=== PATIENT | male | born 1960 | race Caucasian/White ===

== ENCOUNTER 2019-07-17 08:09 | Emergency (ER) | payer BC ==
--- OUTSIDE RECORDS SUMMARY | 2019-07-17 08:20 | XMS REPORT | Continuity of Care Document ---
:1960 External Reference #:[id number] Author Name Loren BUDDY Pina Address [address] [place] [address] Care Team Providers Name Role Phone [facility] - Care Team Information Lead Project Engineer [phone] Gastroenterology Vickey Allen MD - Family Care Team Information Lead Project Engineer [phone] Medicine Problems Active Problems Provider Date Gastroesophageal reflux disease Jf Fam M.D. Onset: 05/10/2013 Allergic condition Vickey Allen M.D. Onset: 05/10/2013 Social History Type Date Description Comments Sex Unknown Tobacco Use Start: Unknown Never Smoked Cigarettes ETOH Use Occasional Allergies, Adverse Reactions, Alerts Active Allergies Reaction Severity Comments Date Doxycycline HTN, Head pressure 07/05/2015 Medications Active Medications SIG Qnty Indications Ordering Provider Date Loratadine 1 PO qd prn 30tabs Family Medicine 04/23/2007 10mg Tablets Allergies [facility] Vitamin B-Complex Unknown Tablets Multivitamins 1 po qd Unknown Capsules Calcium + D3 Unknown [id number] Tablets Probiotic 1 by mouth 2-3x a Unknown Capsules week Immunizations CPT Code Status Date Vaccine Lot # [id number] Given 02/18/2018 Influenza Vac, Quad[place] [id number] Given 01/23/2017 Influenza Vac, Quadrivalent, Slit Virus, Im [id number] Given 02/16/2016 Influenza Vac, [place]riv[place] [id number] Given 03/10/2014 DO Not Use Split Influenza Virus Vaccine Vital Signs Date Vital Result Comment 06/30/2019 1:35pm BP Systolic 142 mmHg BP Diastolic 92 mmHg Heart Rate 100 /min Body Temperature 97.5 F Respiratory Rate 16 /min Height 69.25 inches 5'9.25" Weight 145.00 lb BMI (Body Mass Index) 21.3 kg/m2 01/15/2019 8:41am BP Systolic 150 mmHg BP Diastolic 78 mmHg Heart Rate 90 /min Body Temperature 97.9 F Height 69.25 inches 5'9.25" Weight 141.00 lb BMI (Body Mass Index) 20.7 kg/m2 Results Test Acquired Date Facility Test Result H/L Range Note Laboratory test 06/30/2019 Remberto Danuta([facility]) TSH <pending> 0.5-5.0 finding Uric Acid <pending> 2.5-9.2 Comprehensive Metabolic 01/15/2019 Remberto Danuta([facility]) Sodium 139 mEq/L 134-149 Prof Potassium 4.2 mEq/L 3.6-5.5 Chloride 100 mEq/L 94-112 Carbon Dioxide 29 mEq/L 21-32 Glucose 111 mg/dL High 70-105 1 BUN 10 mg/dL 6-26 Creatinine 0.6 mg/dL 0.6-1.4 BUN/Creat Ratio 16.7 CALC 8.0-36.0 Calcium 9.5 mg/dL 8.6-10.2 Total Protein 7.4 g/dL 6.4-8.3 Albumin 4.9 g/dL 3.8-5.5 Globulin 2.5 g/dL 2.0-4.8 A/G Ratio 2.0 CALC 0.6-2.3 Alk. Phosphatase 83 U/L 22-95 Alt (SGPT) 38 U/L High 7-35 2 Ast (Sgot) 34 U/L 5-34 Total Bilirubin 0.5 mg/dL 0.2-1.3 GFR Non- >60 ml/min/1.73m^ >=60 GFR >60 ml/min/1.73m^ >=60 CBC Electronic Fma 01/15/2019 Sr Flora([facility]) WBC 5.1 x10^3/UL 4.0- 10.0 RBC 4.74 x10^6/UL 3.93-6.00 HGB 15.4 g/dL 12.0-17.0 HCT 46 % 35-50 MCV 97.9 fL High 80.0-95.0 MCH 32.5 pg High 25.6-32.2 MCHC 33.2 g/dL 32.2-36.0 RDW-CV 11.9 % 11.6-14.4 PLT 265 x10^3/UL 163-400 MPV 8.7 fL Low 9.4-12.4 Bety# 3.01 x10^3/UL 1.56-6.13 Lymph# 1.31 x10^3/UL 1.18-3.74 Brown# 0.63 x10^3/UL 0.24-0.82 Eos # 0.1 x10^3/UL 0.0-0.5 Baso # 0.04 x10^3/UL 0.01-0.08 Bety% 58.9 % 34.0-70.0 Lymph % 25.6 % 20.0-52.0 Brown% 12.3 % High 5.0-12.0 Eos% 2.2 % 0.7-7.0 Baso% 0.8 % 0.1-1.2 Ua - Micro (Fma) 01/15/2019 family medicine Appearance clear (607)- - Color yellow Glucose, Urine (Fma/CMC/CTX) neg Bilirubin neg Ketones neg SP Grav 1.010 Blood trace PH 5.5 Protein neg Urobil 0.2 Nitrite neg Leukocytes (Fma/CMC/Centrex) neg Hyaline - /Lpf Granular - /Lpf WBC (Fma,Centrex) 0-1 RBC 0-1 Mucus (Fma/CBC/Centrex) - /Lpf Epith - /Lpf Bacteria - /Hpf Amorphous (Fma/CMC/Centrex) - /Lpf Crystals, Fluid (Fma/CMC/CTX) - 1 NON-FASTING 2 consistent w/ previous results Procedures Date Code Description Status 05/13/2016 [id number] Colonoscopy Completed Medical Devices Description No Information Available Encounters Type Date Location Provider Dx Diagnosis Office Visit 01/15/2019 [facility] Office Loren Pina, R10.32 Left lower 9:00a MANAGER quadrant pain M54.5 Low back pain Assessments Date Code Description Provider 06/30/2019 L29.8 Other pruritus BUDDY Mohan 06/30/2019 R21 Rash and other nonspecific skin eruption BUDDY Mohan 01/15/2019 R10.32 Left lower quadrant pain Loren Yovani, [facility] 01/15/2019 M54.5 Low back pain Loren Pina, [facility] Plan of Treatment 06/30/2019 - Loren Yovani, FNPL29.8 Other [id number] Rash and other nonspecific skin eruptionComments:No scrubbing, gentle soap only, and just to rinse over affected areas-- try to avoid all other topicals to reduce irritation to skin First exederm, then aquaphor to coverCool compresses/ice is the right choiceDERMATOLOGY referral is fine anytime- I do think they would ask you to do what I am asking you to do first-- we can also increase the potency of the steroid as needed if you're not seeing significant improvement in the next 2 weeks Functional Status Description No Information Available Mental Status Description No Information Available Referrals Description No Information Available
[2019-07-17 10:03] VITALS: BP 142/101
--- NOTE | 2019-07-17 11:51 | ED ---
Skin Complaint - HPI Summary HPI Summary: Patient is an otherwise healthy 58yo M presenting to the ED with a 1 week hx of worsening rash. Pt endorses rash starting out to the L lower leg and has now progressed to a diffuse rash. Endorses rash to the upper back, sides of the face, bilateral arms and legs with some resembling linear patches and some confluent patches. Denies fevers, sweats or chills. Denies new fragrances, soaps or environmental contacts. - History of Current Complaint Chief Complaint: EDRashSkinAbscess Time Seen by Provider: 07/17/19 08:51 Stated Complaint: ALLERGIC REACTION PER PT Hx Obtained From: Patient, Family/De Icer Installer Onset/Duration: Started Days Ago Skin Exposure Onset/Duration: Days Ago Timing: Constant Onset Severity: Moderate Current Severity: Moderate Pain Intensity: 0 Pain Scale Used: 0-10 Numeric Skin Location: Diffuse Character: Swelling, Pruritus, Hives, Redness, Raised, Painful Aggravating Symptom(s): Touch Alleviating Symptom(s): Antihistamines - Allergy/Home Medications Allergies/Adverse Reactions: Allergies Allergy/AdvReac Type Severity Reaction Status Date / Time doxycycline Allergy Flushing Verified 07/17/19 08:14 Home Medications: Home Medications Triamcinolone 0.5% CREAM(NF) [Triamcinolone 0.5% CREAM*] 1 applic TOPICAL TID # 2 tube 07/17/19 [Rx] predniSONE 20 mg TAB [Deltasone 20 MG TAB*] 20 mg PO DAILY #20 tab 07/17/19 [Rx] PMH/Surg Hx/FS Hx/Imm Hx Previously Healthy: Yes Endocrine/Hematology History: Denies: Hx Diabetes, Hx Thyroid Disease Cardiovascular History: Denies: Hx Hypertension Respiratory History: Denies: Hx Asthma, Hx Chronic Obstructive Pulmonary Disease (COPD) GI History: Denies: Hx Ulcer History: Denies: Hx Renal Disease - Surgical History Surgery Procedure, Year, and Place: LEFT SIDE HERNIA,VASECTOMY - Immunization History Hx Pertussis Vaccination: No Immunizations Up to Date: Yes Infectious Disease History: No Infectious Disease History: Denies: Hx Clostridium Difficile, Hx Hepatitis, Hx Human Immunodeficiency Virus (HIV), Hx of Known/Suspected MRSA, Hx Shingles, Hx Tuberculosis, Hx Known/ Suspected VRE, Hx Known/Suspected VRSA, History Other Infectious Disease, Traveled Outside the [place] in Last 30 Days - Social History Occupation: Retired Lives: With Family Alcohol Use: Daily Alcohol Amount: 1/2 bottle wine daily Hx Substance Use: No Substance Use Type: Reports: None Hx Tobacco Use: Yes Smoking Status (MU): Former Smoker Review of Systems Negative: Fever, Chills, Fatigue, Skin Diaphoresis Negative: Palpitations, Chest Pain Negative: Shortness Of Breath, Cough Genitourinary: Negative Positive: no symptoms reported, see HPI Negative: Arthralgia, Myalgia Positive: Rash Neurological/Mental Status: Negative All Other Systems Reviewed And Are Negative: Yes Physical Exam Triage Information Reviewed: Yes Vital Signs On Initial Exam: Initial Vitals Temp Pulse Resp BP Pulse Ox 98.2 F 95 16 210/110 98 07/17/19 08:11 07/17/19 08:11 07/17/19 08:11 07/17/19 08:11 07/17/19 08:11 Vital Signs Reviewed: Yes Appearance: Positive: Well-Appearing, No Pain Distress, Well-Nourished Skin: Positive: Skin Color Reflects Adequate Perfusion, Other - see course of treatment Eyes: Positive: EOMI, JUAN, Conjunctiva Clear Neck: Positive: Supple, No Lymphadenopathy Respiratory/Lung Sounds: Positive: Clear to Auscultation, Breath Sounds Present Musculoskeletal: Positive: Strength/ROM Intact Neurological: Positive: Speech Normal Psychiatric: Positive: Affect/Mood Appropriate AVPU Assessment: Alert Procedures - Sedation Patient Received Moderate/Deep Sedation with Procedure: No Diagnostics - Vital Signs Vital Signs Temp Pulse Resp BP Pulse Ox 07/17/19 09:45 97.8 F 84 14 142/101 98 07/17/19 08:11 98.2 F 95 16 210/110 98 - Laboratory Lab Statement: Any lab studies that have been ordered have been reviewed, and results considered in the medical decision making process. Course/Dx - Course Course Of Treatment: Patient is evaluated for diffuse rash. Patient has a rash which appears to be eczematic, areas of well-demarcated confluent eruptions with erythema slightly edemous and a few bullae (one to the L lower leg, and one to the L upper arm). This is bilateral and not following a dermatome pattern. Bilateral face without involvement of the eyes, diffuse throughout the back, intensely pruritic confluent area measuring 6x4cm to the L lateral lower ext without surrounding bullae. Small vesicular eruption to the L anterior lower ext measuring 1x1cm. R arm with diffuse slightly elevated small papular lesions without eruptions or surrounding erythema. No evidence of fissues, hyperkeratosis or edema. Skin appears to be dry. Patient has been on benadryl which has improved his pruritis, but has not improved the rash. Feels over the past few days, the rash has been worsening. Denies any new dyes, bleach, soaps, fragrances. Denies any known allergies. No new cloth dyes. Denies any contact with plants or soil. Has not had shingles vaccine. Has never had shingles. This appears to be a allergic contact dermatitis vs irritant contact dermatitis. Unknown source. No mucous membrane involvement. No fevers. Pt will be started on systemic and topical steroid and continue to take Benadryl for symptoms. F/u with dermatology encouraged. Pt understands to return if he develops worsening symptoms, there is eye involvement or he develops more systemic illness sxs. BP on arrival 210/110. This reduced to 142 /101. Encouraged f/u with PCP. - Differential Diagnoses - Skin Complaint Differential Diagnoses: Other - irritant dermatitis, eczema, vesicular eruption , bullae, allergic contact dermatitis, poison avis, shingles - Diagnoses Provider Diagnoses: Contact dermatitis Discharge ED - Sign-Out/Discharge Documenting (check all that apply): Patient Departure - Discharge Plan Condition: Stable Disposition: HOME Prescriptions: predniSONE 20 mg TAB [Deltasone 20 MG TAB*] 20 mg PO DAILY #20 tab Triamcinolone 0.5% CREAM(NF) [Triamcinolone 0.5% CREAM*] 1 applic TOPICAL TID # 2 tube Patient Education Materials: Acute Rash (ED), Dermatitis (ED) Referrals: Manjula Cardenas MD [Medical Doctor] - Ana M Santoro [Medical Doctor] - Vickey Allen MD [Primary Care Provider] - Additional Instructions: Prednisone: Take 3 tabs x 3 days, 2 tabs x 4 days, 1 tab x 3 days = 10 days Call dermatology tomorrow for an appt If you are unable to see dermatology, please follow back up with PCP for a recheck You may use over the counter calamine lotion for relief on opposite schedule of triamcinolone cream Place triamcinolone cream only over the most affected areas which are severe Over the counter hydrocortisone 1% cream to the face Continue with benadryl at daytime and nighttime Do not vigorously scrub the area, but continue to shower with luke warm water - Billing Disposition and Condition Condition: STABLE Disposition: Home
== END 2019-07-17 09:45 | disposition home or self-care (01) ==
LOC: ED 08:09
DX: L25.9 Unspecified contact dermatitis, unspecified cause (principal); Z88.1 Allergy status to other antibiotic agents; Z87.891 Personal history of nicotine dependence
CPT/HCPCS: 99282